=== PATIENT | female | born 1950 | race Caucasian/White ===

== ENCOUNTER 2019-11-04 12:26 | Emergency (ER) | payer MEDICARE ==
--- NOTE | 2019-11-04 12:56 | ED ---
HPI Chest Pain - HPI Summary HPI Summary: This pt is a 69 Y/O F presenting to [facility] with a CC of CP that is located mid- sternal and described as burning and stabbing. She states that she has been having symptoms for the past 6 weeks. She states that when she has the episodes she usually throws up and then feels better. Her last episode on 11/03/2019 lasted 15 hours which is longer than usual. She also states that she had an episode of vomiting without any relief. She states that she was unable to eat yesterday due to the pain until 1800. She states that when she went to bed she sat up and she had no symptoms. She denies any fevers, chills, headaches, SOB, and diaphoresis. She states that she has no aggravating factors but states that when she vomits she usually has relief. She states that she has a PMHx of hypercholesterolemia. She has a SHx of alcohol consumption. She has a FHx of strokes in her older brother. She denies any cardiac history. - History of Current Complaint Chief Complaint: EDChestPainROMI Time Seen by Provider: 11/04/19 12:46 Hx Obtained From: Patient Onset/Duration: Started Days Ago - 1, Resolved Time of Onset: 03:00 Timing: Constant, Lasting Hours - 15 Initial Severity: Moderate Current Severity: None Pain Intensity: 0 Pain Scale Used: 0-10 Numeric Chest Pain Location: Mid Sternal Chest Pain Radiates: No Character: Burning, Sharp/Stabbing Aggravating Factor(s): Nothing Alleviating Factor(s): Other: - vomiting Associated Signs and Symptoms: Positive: Chest Pain, Nausea, Vomiting. Negative : Headaches, Shortness of Breath, Fever, Diaphoresis - Allergy/Home Medications Allergies/Adverse Reactions: Allergies Allergy/AdvReac Type Severity Reaction Status Date / Time No Known Allergies Allergy Verified 11/04/19 12:33 Home Medications: Home Medications Vitamin B1 INJ* 1 ml IM MONTHLY 11/04/19 [History Confirmed 11/04/19] PMH/Surg Hx/FS Hx/Imm Hx Previously Healthy: Yes Endocrine/Hematology History: Denies: Hx Diabetes Cardiovascular History: Reports: Hx Hypercholesterolemia Denies: Hx Congestive Heart Failure Musculoskeletal History: Denies: Hx Osteoporosis Sensory History: Denies: Hx Contacts or Glasses Opthamlomology History: Denies: Hx Contacts or Glasses - Cancer History Hx Chemotherapy: No Hx Radiation Therapy: No - Surgical History Surgical History: Yes Surgery Procedure, Year, and Place: colycystectomy - Immunization History Immunizations Up to Date: Yes Infectious Disease History: No Infectious Disease History: Denies: Traveled Outside the [place] in Last 30 Days - Family History Known Family History: Positive: Other - older brother has a Hx of strokes - Social History Occupation: Employed Full-time Lives: Alone Alcohol Use: Occasionally Hx Substance Use: Yes Substance Use Type: Reports: Marijuana Hx Tobacco Use: No Smoking Status (MU): Never Smoked Tobacco Review of Systems Negative: Fever, Chills, Skin Diaphoresis Positive: Chest Pain Negative: Shortness Of Breath Positive: Vomiting, Nausea Negative: Headache All Other Systems Reviewed And Are Negative: Yes Physical Exam - Summary Physical Exam Summary: VITAL SIGNS: Reviewed. GENERAL: Patient is a well-developed and nourished female who is lying comfortable in the stretcher. Patient is not in any acute respiratory distress. HEAD AND FACE: No signs of trauma. No ecchymosis, hematomas or skull depressions. No sinus tenderness. EYES: PERRLA, EOMI x 2, No injected conjunctiva, no nystagmus. EARS: Hearing grossly intact. Ear canals and tympanic membranes are within normal limits. MOUTH: Oropharynx within normal limits. NECK: Supple, trachea is midline, no adenopathy, no JVD, no carotid bruit, no c- spine tenderness, neck with full ROM. CHEST: Symmetric, no tenderness at palpation LUNGS: Clear to auscultation bilaterally. No wheezing or crackles. CVS: Regular rate and rhythm, S1 and S2 present, no murmurs or gallops appreciated. ABDOMEN: Soft, non-tender. No signs of distention. No rebound no guarding, and no masses palpated. Bowel sounds are normal. EXTREMITIES: FROM in all major joints, no edema, no cyanosis or clubbing. NEURO: Alert and oriented x 3. No acute neurological deficits. Speech is normal and follows commands. SKIN: Dry and warm Triage Information Reviewed: Yes Vital Signs On Initial Exam: Initial Vitals Temp Pulse Resp BP Pulse Ox 98 F 95 16 154/60 96 11/04/19 12:30 11/04/19 12:30 11/04/19 12:30 11/04/19 12:30 11/04/19 12:30 Vital Signs Reviewed: Yes Procedures - Sedation Patient Received Moderate/Deep Sedation with Procedure: No Diagnostics - Vital Signs Vital Signs Temp Pulse Resp BP Pulse Ox 11/04/19 12:30 98 F 95 16 154/60 96 - Laboratory Result Diagrams: 11/04/19 13:01 11/04/19 13:01 Lab Statement: Any lab studies that have been ordered have been reviewed, and results considered in the medical decision making process. - Radiology CXR Radiology Interpretation Completed By: Radiologist Summary of Radiographic Findings: Stigmata of probable obstructive lung disease. No acute pulmonary or cardiac process evident. ED physician has reviewed this report. - EKG 1230 Cardiac Rate: NL - 75 BPM EKG Rhythm: Sinus Rhythm ST Segment: Normal Ectopy: None Summary of EKG Findings: An EKG at 1230 reveals NSR AT 75 BPM, nml axis, nml intervals. No STEMI. No acute changes. Interpreted by Dr. Fletcher at 11/04/2019 1230 Chest Pain Course/Dx - Course Assessment/Plan: This pt is a 69 Y/O F presenting to [facility] with a CC of CP that is located mid-sternal and described as burning and stabbing. She states that she has been having symptoms for the past 6 weeks. She states that when she has the episodes she usually throws up and then feels better. Her last episode on 07/2020 lasted 15 hours which is longer than usual. She also states that she had an episode of vomiting without any relief. She states that she was unable to eat yesterday due to the pain until 1800. She states that when she went to bed she sat up and she had no symptoms. She denies any fevers, chills, headaches , SOB, and diaphoresis. She states that she has no aggravating factors but states that when she vomits she usually has relief. She states that she has a PMHx of hypercholesterolemia. She has a SHx of alcohol consumption. She has a FHx of strokes in her older brother. She denies any cardiac history. Blood work without any significant abnormality except for glucose of 104, TSH of 13.3. Urinalysis negative for UTI. Patient reports that all symptoms have resolved. Patient Heart score is: 1 therefore, low suspicion for CAD. Patient is not hypoxic or tachycardic. Wells criteria 0. Therefore, no suspicion for PE. Patient has no abdominal bruit thus no suspicion for AAA. Patients pain does not radiate to the back and pain has resolved thus low suspicion for aortic dissection. I discussed all the findings and test results with the patient. Patient was instructed to return to the emergency room immediately if any of the symptoms return or worsen. Patient understands and agrees. Plan of care was discussed with the patient and patient understands and agrees. All questions were answered at patient satisfaction. There were no further complaints or concerns. PE before discharge: CVS: S1 and S2 present. No murmurs appreciated. Abdominal exam before discharge: Soft, non-tender. No signs of distention. No rebound no guarding, and no masses palpated. Bowel sounds are normal. Patient is alert and oriented x 3. Patient is hemodynamically stable. - Diagnoses Provider Diagnoses: Atypical chest pain, Hypothyroidism Discharge ED - Sign-Out/Discharge Documenting (check all that apply): Patient Departure - discharge - Discharge Plan Condition: Stable Disposition: HOME Patient Education Materials: Chest Pain (ED) Referrals: Doroteo Thornton MD [Primary Care Provider] - 2 Days Additional Instructions: PLEASE RETURN TO THE ED IMMEDIATELY FOR WORSENING OR CONCERNING SYMPTOMS AND FOLLOW UP WITH YOUR PRIMARY CARE PHYSICIAN IN 1-3 DAYS. - Billing Disposition and Condition Condition: STABLE Disposition: Home - Attestation Statements Document Initiated by Destiny: Yes Documenting Scribe: Jules Weldon Provider For Whom Destiny is Documenting (Include Credential): Sudhakar Fletcher MD Scribe Attestation: Jules Schroeder, scribed for Sudhakar Fletcher MD on 11/04/19 at 1810. Scribe Documentation Reviewed: Yes Provider Attestation: The documentation as recorded by the Jules lechuga accurately reflects the service I personally performed and the decisions made by me, Sudhakar Fletcher MD Status of Scribe Document: Viewed
[2019-11-04 13:09] LABS: ABS Basophils 0.1 10^3/ul (0-0.2); ABS Eosinophils 0.1 10^3/ul (0-0.6); ABS Lymphocytes 1.6 10^3/ul (1.0-4.8); ABS Monocytes 0.6 10^3/ul (0-0.8); ABS Neutrophils 2.5 10^3/ul (1.5-7.7); Eosinophil % 2.6 %; Hematocrit 41 % (35-47); Hemoglobin 14.2 g/dL (12.0-16.0); Lymphocyte % 32.5 %; Mean Corpuscular HGB Conc 35 g/dL (31-36); Mean Corpuscular Hemoglobin 32 pg (27-31); Mean Corpuscular Volume 91 fL (80-97); Mean Platelet Volume 7.7 fL (7.4-10.4); Nucleated Red Blood Cells % 0.1; Platelet Count 287 10^3/uL (150-450); Red Blood Count 4.47 10^6 /uL (3.70-4.87); Red Cell Distribution Width 13 % (10-15); White Blood Count 4.8 10^3/uL (3.5-10.8)
[2019-11-04 13:19] LABS: INR 0.98 (0.82-1.09)
[2019-11-04 13:25] LABS: Urine Appearance Clear; Urine Bilirubin Negative (Negative); Urine Blood 1+ (Negative); Urine Color Yellow; Urine Glucose Negative (Negative); Urine Ketones Negative (Negative); Urine Nitrite Negative (Negative); Urine Protein Negative (Negative); Urine Specific Gravity 1.009 (1.010-1.030); Urine Urobilinogen Negative (Negative)
[2019-11-04 13:27] LABS: Urine Bacteria Absent (Absent); Urine Red Blood Cell Absent (Absent); Urine White Blood Cell Absent (Absent)
[2019-11-04 13:29] LABS: Albumin 4.3 g/dL (3.2-5.2); Albumin/Globulin Ratio 1.3 (1-3); BUN/Creatinine Ratio 19.2 (8-20); Calcium 9.4 mg/dL (8.6-10.3); EGFR African American 88.6 (>60); EGFR Non-African American 73.2 (>60); Globulin 3.2 g/dL (2-4); Magnesium 1.9 mg/dL (1.9-2.7); Total Bilirubin 0.6 mg/dL (0.2-1.0); Total Protein 7.5 g/dL (6.4-8.9)
[2019-11-04 13:31] LABS: CKMB ng/mL 2.4 ng/mL (0.6-6.3)
[2019-11-04 14:13] LABS: TSH (Thyroid Stimulating Horm) 13.38 mcIU/mL (0.34-5.60)
[2019-11-04 16:19] VITALS: BP 158/78
== END 2019-11-04 16:32 | disposition home or self-care (01) ==
LOC: ED 12:26
DX: R07.89 Other chest pain (principal); E03.9 Hypothyroidism, unspecified; E78.00 Pure hypercholesterolemia, unspecified; Z90.49 Acquired absence of other specified parts of digestive tract
CPT/HCPCS: 36415; 71045; 80053; 81003; 81015; 82550; 82553; 83605; 83735; 83880; 84443; 84484; 85025; 85610; 93005; 99283